=== PATIENT | female | born 1990 | race Caucasian/White ===

== ENCOUNTER → 2019-09-25 | Outpatient (CLI) | payer OTHER ==
[2015-06-02 22:47] VITALS: BP 123/62
--- NOTE | 2019-09-25 14:56 | RAD ---
ABDOMEN SUPINE UPRIGHT 09/25/2019 12:00 AM INDICATION: Missing IUD COMPARISON: None available. TECHNIQUE: Frontal and lateral supine views of abdomen are provided.. FINDINGS/ IMPRESSION: IUD is identified within the central pelvis anteriorly. Ultrasound may be of benefit for better assessment. Nonobstructive bowel gas pattern. No suspicious osseous normality. No calcifications along the genitourinary tract. Electronically signed by: Radha Dash MD (09/25/2019 2:52 PM) [id number]
== END | disposition home or self-care (01) ==
LOC: DXRAD 13:51
PROVIDERS: ATTEND Nurse Practitioner Family
DX: T83.32XA Displacement of intrauterine contraceptive device, initial encounter (principal); Y83.8 Other surgical procedures as the cause of abnormal reaction of the patient, or of later complication, without mention of misadventure at the time of the procedure; Y92.89 Other specified places as the place of occurrence of the external cause
CPT/HCPCS: 74019